=== PATIENT | female | born 1945 | race Two or more races ===

== ENCOUNTER → 2024-07-17 | Outpatient (CLI) | payer MEDICARE, BC, SELFPAY ==
[2024-07-17 10:05] LABS: Collection Type, Urine Clean Catch
[2024-07-17 10:21] LABS: Basophils % (Auto) 1 % (0-2.5); Eosinophils # (Auto) 0.1 Thou/mm3 (0.0-0.5); Eosinophils % (Auto) 3 % (0-10); Hematocrit 33.7 % (36.0-46.0); Hemoglobin 10.8 g/dL (12.0-16.0); Immature Granulocytes % (Auto) 0 % (0-0); Immature Granulocytes Auto 0.01 Thou/mm3 (0.00-0.00); Lymphocytes # (Auto) 1.9 Thou/mm3 (1.0-4.8); Lymphocytes % (Auto) 39 % (10-50); Mean Corpuscular Hemoglobin 27.8 pg (25.0-35.0); Mean Corpuscular Volume 87 fL (80-100); Monocytes # (Auto) 0.4 Thou/mm3 (0.0-0.8); Monocytes % (Auto) 9 % (0-12); Neutrophils # (Auto) 2.3 Thou/mm3 (1.8-7.7); Neutrophils % (Auto) 48 % (37-80); Nucleated Red Blood Cell % 0 /100 WBC (0); Platelet Count 150 Thou/mm3 (140-440); RDW Standard Deviation 46.8 fL (36.4-46.3); Red Blood Count 3.88 Miln/mm3 (4.00-5.20); White Blood Count 4.8 Thou/mm3 (3.6-11.0)
[2024-07-17 10:41] LABS: Bacteria,Urine 3+; Bilirubin,Urine Negative (Negative); Blood,Urine 1+ (Negative); Clarity,Urine Clear (Clear/Hazy); Color,Urine Lt-Yellow (Lt Yel-Yel); Glucose, Urine Negative (Negative); Hyaline Casts,Urine < 1 /hpf (0-1); Ketones,Urine Negative (Negative); Leukocyte Esterase,Urine Positive (Negative); Nitrite,Urine Positive (Negative); PH,Urine 5.5 (5.0-7.0); Protein,Urine Trace (Neg - Trace); RBC,Urine 5 /hpf (0-3); Squamous Epithelial Cell,Urine 1 /hpf (0-5); Urobilinogen,Urine Negative mg/dL (0.0-1.0); WBC,Urine 66 /hpf (0-5)
[2024-07-17 10:42] LABS: Alanine Aminotransferase 21 U/L (10-49); Albumin, Serum 4.1 gm/dL (3.4-4.8); Albumin/Globulin Ratio 1.5 (1.2-2.2); Alkaline Phosphatase 68 U/L (46-116); Anion Gap 9 (7-16); Aspartate Amino Transferase 24 U/L (0-34); BUN/Creatinine Ratio 24 Ratio (12-20); Bilirubin,Total 0.4 mg/dL (0.3-1.2); Blood Urea Nitrogen 29 mg/dL (9-23); Calcium 9.7 mg/dL (8.3-10.6); Calcium (Corrected) 9.7 mg/dL (8.5-10.1); Carbon Dioxide 23.2 mMol/L (20.0-31.0); Cardiac Risk Estimate 2.3 RATIO (3.7-5.6); Chloride 110 mMol/L (98-107); Cholesterol 134 mg/dL (132-200); Creatinine (Component) 1.2 mg/dL (0.6-1.3); Globulin 2.8 gm/dL (2.3-3.5); Glucose 115 mg/dL (74-106); HDL Cholesterol 59 mg/dL (40-60); LDL Cholesterol,Calculated 41 mg/dL (0-130); Osmolality,Calculated 289 (275-295); Potassium 3.8 mMol/L (3.4-5.1); Sodium 142 mMol/L (136-145); Total Protein 6.9 gm/dL (5.7-8.2); Triglycerides 169 mg/dL (30-150); eGFR 46 See Note
== END | disposition home or self-care (01) ==
LOC: COPL 09:20
PROVIDERS: PCP Internal Medicine; Referring Provider Internal Medicine; Visit Provider Internal Medicine
DX: E03.9 Hypothyroidism, unspecified (principal); C90.00 Multiple myeloma not having achieved remission; E78.5 Hyperlipidemia, unspecified; I10 Essential (primary) hypertension
CPT/HCPCS: 36415; 80053; 80061; 81001; 84443; 85025

== ENCOUNTER → 2024-07-28 | Outpatient (CLI) | payer MEDICARE, BC, SELFPAY ==
--- NOTE | 2024-07-28 10:55 | XR_ITS ---
Examination: CT abdomen without intravenous contrast. Coronal 2-D reconstructions. Sagittal 2-D reconstructions. Date and time of exam:July 28, 2024 1115 hours Comparison January 01, 2023 CTDI: vol (mGy): 8.31 DLP: (mGycm): 230 Technique: Axial images of the abdomen have been obtained, 3 mm slice thickness, without intravenous contrast 2-D sagittal coronal reconstructions Low dose protocols were performed. One or more of the following dose reduction techniques were used; automated exposure control, adjustment of the mA and/or KV according to patient size, use of iterative reconstruction technique. Findings: No focal liver lesions Absent gallbladder Spleen is not enlarged No pancreatic or adrenal mass Moderate bilateral renal parenchymal scar formation 3 mm soft calcification posterior right kidney No hydronephrosis or ureteral calculi No bowel obstruction Scattered colonic diverticulosis Moderate osteopenia IMPRESSION: Absent gallbladder Moderate bilateral renal parenchymal scar formation 3 mm calculus posterior right kidney, no hydronephrosis or ureteral calculi
== END | disposition home or self-care (01) ==
LOC: CCTX 10:44
PROVIDERS: PCP Internal Medicine; Referring Provider Internal Medicine; Visit Provider Internal Medicine
DX: N28.89 Other specified disorders of kidney and ureter (principal); N20.0 Calculus of kidney; Z90.49 Acquired absence of other specified parts of digestive tract
CPT/HCPCS: 74150

== ENCOUNTER 2024-10-25 10:15 | Day surgery (SDC) | payer MEDICARE, BC, SELFPAY ==
[2024-10-25] VITALS (10 sets, daily range): BP systolic 126–182; BP diastolic 62–87; PULSE 54–77; RESP 15–22; TEMP 36.5–36.9; O2SAT 95–100; BMI 29.6
[2024-10-25] MEDS: SODIUM CHLORIDE 0.9% 500 ML 500 ML 20 ML IV (11:50)
[2024-10-25] MEDS: BENZOCAINE 20% (Hurricaine) SPRAY 1 DOSE TOP (11:51)
[2024-10-25] MEDS: DiphenhydrAMINE INJ 50 MG/ML VIAL 25 MG IVP (11:56)
[2024-10-25] MEDS: fentaNYL CIT INJ 50 mCg/ML AMP 2ML (ASD USE ONLY) IVP (11:56)
[2024-10-25] MEDS: MIDAZOLAM INJ 1 MG/ML VIAL 2 ML (ASD USE ONLY) 2 MG IVP (11:58)
== END 2024-10-25 13:00 | disposition home or self-care (01) ==
PROVIDERS: PCP Internal Medicine; Referring Provider Specialist; Visit Provider Specialist
PROC: (CPT 43239; principal; 2024-10-25 12:00)
DX: K22.2 Esophageal obstruction (principal); K20.90 Esophagitis, unspecified without bleeding; K29.70 Gastritis, unspecified, without bleeding; K31.89 Other diseases of stomach and duodenum; K29.80 Duodenitis without bleeding
CPT/HCPCS: 43248; 43239; C1769; J1200; J2250; J3010; J7040; A9270

== ENCOUNTER → 2024-12-06 | Outpatient (CLI) | payer MEDICARE, BC, SELFPAY ==
[2024-12-06 09:14] LABS: Collection Type, Urine Clean Catch
[2024-12-06 09:30] LABS: Basophils # (Auto) 0.0 Thou/mm3 (0.0-0.2); Basophils % (Auto) 1 % (0-2.5); Eosinophils # (Auto) 0.1 Thou/mm3 (0.0-0.5); Eosinophils % (Auto) 2 % (0-10); Hematocrit 32.8 % (36.0-46.0); Hemoglobin 10.4 g/dL (12.0-16.0); Immature Granulocytes Auto 0.02 Thou/mm3 (0.00-0.00); Lymphocytes # (Auto) 1.7 Thou/mm3 (1.0-4.8); Lymphocytes % (Auto) 30 % (10-50); Mean Corpuscular HGB Conc 31.7 g/dl (31.0-37.0); Mean Corpuscular Hemoglobin 27.9 pg (25.0-35.0); Mean Corpuscular Volume 88 fL (80-100); Monocytes # (Auto) 0.4 Thou/mm3 (0.0-0.8); Monocytes % (Auto) 7 % (0-12); Neutrophils # (Auto) 3.4 Thou/mm3 (1.8-7.7); Neutrophils % (Auto) 61 % (37-80); Nucleated Red Blood Cell # 0.00 Thou/mm3 (0.00-0.00); Nucleated Red Blood Cell % 0 /100 WBC (0); Platelet Count 214 Thou/mm3 (140-440); RDW Standard Deviation 50.1 fL (36.4-46.3); Red Blood Count 3.73 Miln/mm3 (4.00-5.20); White Blood Count 5.6 Thou/mm3 (3.6-11.0)
[2024-12-06 09:46] LABS: Alanine Aminotransferase 19 U/L (10-49); Albumin, Serum 3.9 gm/dL (3.4-4.8); Albumin/Globulin Ratio 1.6 (1.2-2.2); Alkaline Phosphatase 67 U/L (46-116); Anion Gap 7 (7-16); Aspartate Amino Transferase 22 U/L (0-34); BUN/Creatinine Ratio 13 Ratio (12-20); Bilirubin,Total 0.3 mg/dL (0.3-1.2); Blood Urea Nitrogen 15 mg/dL (9-23); Calcium 9.0 mg/dL (8.3-10.6); Calcium (Corrected) 9.1 mg/dL (8.5-10.1); Carbon Dioxide 26.4 mMol/L (20.0-31.0); Cardiac Risk Estimate 2.5 RATIO (3.7-5.6); Chloride 107 mMol/L (98-107); Cholesterol 107 mg/dL (132-200); Creatinine (Component) 1.2 mg/dL (0.6-1.3); Globulin 2.5 gm/dL (2.3-3.5); Glucose 121 mg/dL (74-106); HDL Cholesterol 42 mg/dL (40-60); LDL Cholesterol,Calculated 40 mg/dL (0-130); Osmolality,Calculated 281 (275-295); Potassium 3.9 mMol/L (3.4-5.1); Sodium 140 mMol/L (136-145); Total Protein 6.4 gm/dL (5.7-8.2); Triglycerides 127 mg/dL (30-150); eGFR 45 See Note
[2024-12-06 09:50] LABS: Bilirubin,Urine Negative (Negative); Blood,Urine 1+ (Negative); Clarity,Urine Clear (Clear/Hazy); Color,Urine Yellow (Lt Yel-Yel); Glucose, Urine Negative (Negative); Ketones,Urine Negative (Negative); Leukocyte Esterase,Urine Negative (Negative); Nitrite,Urine Negative (Negative); PH,Urine 6.0 (5.0-7.0); Protein,Urine Trace (Neg - Trace); RBC,Urine 4 /hpf (0-3); Specific Gravity,Urine 1.023 (1.001-1.035); Squamous Epithelial Cell,Urine 6 /hpf (0-5); Urobilinogen,Urine Negative mg/dL (0.0-1.0); WBC,Urine 2 /hpf (0-5)
== END | disposition home or self-care (01) ==
LOC: COPL 08:20
PROVIDERS: PCP Internal Medicine; Referring Provider Internal Medicine; Visit Provider Internal Medicine
DX: I10 Essential (primary) hypertension (principal); E78.5 Hyperlipidemia, unspecified
CPT/HCPCS: 36415; 80053; 80061; 81001; 85025

== ENCOUNTER 2024-12-14 09:02 | Inpatient (IN) | payer MEDICARE, BC, SELFPAY ==
[2024-12-14] VITALS (7 sets, daily range): BP systolic 132–174; BP diastolic 61–81; PULSE 55–67; RESP 16–22; TEMP 36.4–37; O2SAT 95–98; BMI 29.2; BMI 46.5
--- NOTE | 2024-12-14 09:17 | EDRME_ITS ---
Rapid Medical Screening Exam RME Arrival date/time: 12/14/24 09:02 CC: Right lower quadrant abdominal pain HPI ongoing for 2 weeks progressive increase in severity persistent in nature currently a 10 on a 10 nausea without any vomiting denies diarrhea. Was seen on the December 01 at hospital in [place] was diagnosed with pancreatitis and duodenitis and discharged home. Currently sent over from Dr. Ledbetter's office for further workup. Chief Complaint: Abdominal Pain Time Seen by Provider: 12/14/24 09:16
--- NOTE | 2024-12-14 09:18 | EKG_ITS ---
[facility] Test Date: 2024-12-14 Pat Name: BUSHRA LUNA Department: Room: - Gender: Female Torch Cutter: : 1945 Requested By: Isael Tran Order Number: [id number] Reading MD: Isael Tran Measurements Intervals Plaza Rate: 61 P: 21 ND: 143 QRS: -72 QRSD: 146 T: 27 QT: 448 QTc: 452 Interpretive Statements SINUS RHYTHM POSSIBLE LEFT ATRIAL ENLARGEMENT [-0.1mV P-WAVE IN V1/V2] LEFT AXIS DEVIATION [QRS AXIS < -30] RIGHT BUNDLE BRANCH BLOCK [120+ ms QRS DURATION, UPRIGHT V1, 40+ ms S IN I/aVL/V4/V5/V6] Compared to ECG 07/26/2023 12:35:20 Left-axis deviation now present Sinus bradycardia no longer present Left anterior fascicular block no longer present /store/S0/[id number]/ecg/[id number].pdf
--- NOTE | 2024-12-14 09:19 | XR_ITS ---
Examination: CT abdomen and pelvis without contrast. Coronal 3-D reconstructions. Sagittal 2-D reconstructions. Date and time of exam:December 14, 2024 0939 hours Comparison July 28, 2024 INDICATIONS: Onset right lower abdominal pain today CTDI: vol (mGy): 7.44 DLP: (mGycm): 118 Technique: Axial images of the abdomen have been obtained, 3 mm slice thickness Intravenous contrast material has not been administered. Low dose protocols were performed. One or more of the following dose reduction techniques were used; automated exposure control, adjustment of the mA and/or KV according to patient size, use of iterative reconstruction technique. Findings: No focal liver or splenic lesions Absent gallbladder Suspicious for minimal edema involving the pancreatic head Aorta normal size Moderate renal parenchymal scar formation in renal cortical thinning, no hydronephrosis Aorta normal size No pericecal inflammatory change Colonic diverticulosis, no diverticulitis Urinary bladder intact Absent uterus No pelvic mass Prominent osteopenia IMPRESSION: Suspicious for pancreatitis, clinical correlation advised, consider MRCP follow-up No pericecal inflammatory change Colonic diverticulosis, no diverticulitis
[2024-12-14 10:01] LABS: Collection Type, Urine Clean Catch
--- NOTE | 2024-12-14 10:01 | EDNOTE_ITS ---
<Statement entered by Noni Leyva MD - 12/14/24 15:00> I, Noni Leyva MD, have reviewed the history, exam, and assessment of the patient. I have evaluated the patient independently and agree with the plan of care documented by [ ]. All diagnostic studies were reviewed and discussed. I confirm the diagnosis as documented by the Resident. I was present during the Medical Decision Making for this patient. The patient's plan of care was created between myself and the Resident and consistent with our discussion of the patient's case. ED General RME/HPI General Chief complaint: Abdominal Pain Stated complaint: Acute Pancreatitis Time Seen by Provider: 12/14/24 09:16 Arrival date/time: 12/14/24 09:02 RME / HPI RME / HPI narrative: 12/14/24 09:02 CC: Right lower quadrant abdominal pain HPI ongoing for 2 weeks progressive increase in severity persistent in nature currently a 10 on a 10 nausea without any vomiting denies diarrhea. Was seen on the December 01 at hospital in [place] was diagnosed with pancreatitis and duodenitis and discharged home. Currently sent over from Dr. Ledbetter's office for further workup. 79-year-old female with past medical history of breast cancer, bone cancer, blood cancer s/p resections in September of last year, CAD s/p CABG, hypertension, and hyperlipidemia, came into the ED due to worsening abdominal pain that started around 2 weeks ago and is associated with nausea, but no vomiting. Patient states that she went to [facility] and she was diagnosed pancreatitis and duodenitis, but she was not admitted at this time she was sent home. Patient states that since discharge her pain has increasingly gotten worse and she has became nauseous, but has not had any vomiting. That her pain is epigastric mostly and that it radiates to her back. She also mentioned that she did feel like she had a fever at night and she has also been having intra labs days of diarrhea with normal bowel movements. She has not noticed any blood in the bowels. Otherwise denies any chest pain, shortness of breath, dizziness, palpitation, or burning sensation of urination. Related Data Home Medications ?Medication ?Instructions ?Recorded ?Confirmed alprazolam 0.5 mg tablet 0.5 mg PO TID 10/25/2410/25 Held on 10/25/24. Instructions: Resume on 10/26/24. amlodipine 5 mg tablet 5 mg PO DAILY 10/25/2410/25 diphenoxylate-atropine 2.5 1 tab PO DAILY 10/25/24 mg-0.025 mg tablet levothyroxine 125 mcg tablet 125 mcg PO DAILY 10/25/24 10/25/24 lisinopril 30 mg tablet 30 mg PO DAILY 10/25/2410/08 loperamide 2 mg capsule 2 mg PO DAILY 10/25/2410/25 loratadine 10 mg capsule (Allergy 10 mg PO Q24H 10/25/24 Relief (loratadine)) naproxen 500 mg tablet 500 mg PO BID PRN pain 10/2510/25/24 nitroglycerin 0.4 mg sublingual 0.4 mg buccal [id number] PRN chest 10/25/24 10/25/24 tablet pain olmesartan 40 mg tablet 40 mg PO QDAY 10/25/2410/25 pantoprazole 40 mg tablet,delayed 40 mg PO DAILY 10/2510/25/24 release rosuvastatin 20 mg tablet 20 mg PO DAILY 10/25/2410/08 Allergies Allergy/AdvReac Type Severity Reaction Status Date / Time Iodinated Contrast Media Allergy Verified 12/14/24 09:09 Sulfa (Sulfonamide Allergy Verified 12/14/24 09:09 Antibiotics) Review of Systems Review of Systems Systems Reviewed: All systems reviewed, normal except as documented Past Medical History Past Medical History Comments PMH COMMENT: PMH:breast cancer, bone cancer, blood cancer s/p resections in September of last year, CAD s/p CABG, hypertension, and hyperlipidemia Social Hx: Denies any smoking, drugs, alcohol Allergies: Sulfa and iodinated contrast ED Exam Narrative Physical exam: Gen: A&O X 3, uncomfortable appearing, mild distress due to pain HEENT: NCAT, EOMI, Pupils reactive JOSEF, not icteric. External ears normal. No rhinorrhea. Moist mucous membranes. Neck: Supple, full range of motion, no observable masses, No meningeal sign. Lungs: No Respiratory distress, clear bilateral. CV: RRR, no murmurs. Abdomen: Soft, generalized tenderness, but worse in epigastric region with palpation, No rebound tenderness. MSK: No joint swelling, no redness, peripheral pulses presents, lumbar with no edema. Skin: No rashes, petechiae, lesions. Neuro: No focal neurological deficits appreciated, sensory and motor intact. Psych: Cooperative, appropriate mood and effect. Course Quality Measures none Orders Category Date Time Status COVID-19 Screening Questionnaire NOW Care 12/14/24 11:24 Active Decision to Admit X1 Care 12/14/24 11:23 Active EKG (ED ONLY) *Do not use* NOW Care 12/14/24 09:18 Completed Saline [Insert IV] NOW Care 12/14/24 09:[address] abdomen pelvis wo con Stat Exams 12/14/24 09:19 Completed EKG (ED Only) Stat Exams 12/14/24 09:18 Draft B-Type Natriuretic Peptide Stat Lab 12/14/24 09:57 Completed CBC Stat Lab 12/14/24 09:57 Completed Comprehensive Metabolic Panel Stat Lab 12/14/24 09:57 Results Drug Screen,Urine Stat Lab 12/14/24 09:52 Completed Lactate (Lactic Acid) Stat Lab 12/14/24 09:57 Completed Lipase Stat Lab 12/14/24 09:57 Results Lipid Panel Stat Lab 12/14/24 09:57 Results Magnesium Stat Lab 12/14/24 09:57 Results Partial Thromboplastin Time Stat Lab 12/14/24 09:57 Completed Prothrombin Time with INR Stat Lab 12/14/24 09:57 Completed Urinalysis Stat Lab 12/14/24 08:20 Received Magnesium Sulfate 2 GM Ivpb [Magnesium Sulfate Ivpb] Med 12/14/24 10:36 Active 2 gm in 50 ml IV X1 Morphine Inj Med 12/14/24 09:18 Discontinued 4 mg IVP X1 ONE Ondansetron Inj [Zofran Inj] Med 12/14/24 09:18 Discontinued 4 mg IVP X1 ONE Sodium Chloride 0.9% 500 ml [Ns] 500 ml Med 12/14/24 09:18 Discontinued IV 999 mls/hr Vital Signs Vital signs: Vital Signs Temperature 98.3 F 12/14/24 09:15 Pulse Rate 63 12/14/24 09:15 Respiratory Rate 22 H 12/14/24 09:15 Blood Pressure 156/79 H 12/14/24 09:15 Pulse Oximetry (%) 96 12/14/24 09:15 Oxygen Delivery Method Room Air 12/14/24 09:15 Discharge Plan Plan Patient Disposition: Admit Acute Care w/in Hospital Prescriptions/Referrals Prescriptions/Med Rec: No Action Allergy Relief (loratadine) 10 mg capsule 10 mg PO Q24H rosuvastatin 20 mg tablet 20 mg PO DAILY Patient Comments: TAKE 1 TABLET BY MOUTH EVERY DAY pantoprazole 40 mg tablet,delayed release (DR/EC) 40 mg PO DAILY Patient Comments: TAKE 1 TABLET BY MOUTH EVERY DAY olmesartan 40 mg tablet 40 mg PO QDAY naproxen 500 mg tablet 500 mg PO BID PRN (Reason: pain) Patient Comments: TAKE 1 TABLET BY MOUTH TWICE DAILY NEEDED FOR MILD PAIN. GENERIC FOR NAPROSYN lisinopril 30 mg tablet 30 mg PO DAILY Patient Comments: TAKE 1 TABLET BY MOUTH EVERY DAY levothyroxine 125 mcg tablet 125 mcg PO DAILY Patient Comments: TAKE 1 TABLET BY MOUTH DAILY nitroglycerin 0.4 mg tablet, sublingual 0.4 mg BUCCAL [id number] PRN (Reason: chest pain) Patient Comments: DISSOLVE 1 TABLET UNDER THE TONGUE AT THE ONSET OF CHEST PAIN. REPEAT EVERY 5 MINUTES. MAXIMUM OF 3 DOSES WITHIN 15 MINUTES amlodipine 5 mg tablet 5 mg PO DAILY Patient Comments: TAKE 1 TABLET BY MOUTH EVERY DAY alprazolam 0.5 mg tablet 0.5 mg PO TID Patient Comments: TAKE 1 TABLET BY MOUTH THREE TIMES DAILY NEEDED FOR ANXIETY loperamide 2 mg capsule 2 mg PO DAILY Patient Comments: TAKE 1 CAPSULE BY MOUTH EVERY 4 HOURS NEEDED FOR LOOSE STOOLS diphenoxylate-atropine 2.5-0.025 mg tablet 1 tab PO DAILY Patient Comments: TAKE 1 TABLET BY MOUTH FOUR TIMES DAILY NEEDED FOR LOOSE STOOLS Referrals: Reza Ledbetter MD [Primary Care Provider] - In 1 week Problem List Clinical Impression: Pancreatitis Patient/Caregiver Discharge Instructions Print Language: Jamaican Stand Alone Forms: [employer] Award Info., Patient Portal Info Letter MDM Narrative MDM hospital course: Patient was seen and examined by myself upon arrival to room. Diagnostic labs and imaging was ordered. 11:10:Labs were reviewed and showed lipase elevation at 55, abdomen/pelvis CT that shows suspicion for pancreatitis. 11:23: Spoke with Dr. Ledbetter for hospital admission. Will assess patient for admission . Case disclosed with Attending Dr. Gordon Olvera PGY2 Disclaimer: Even though this this note was dictated by speech recognition and even though it was carefully revised there may still be minor errors in ladies locker room attendant due to voice recognition software. Medication Administration(s) Medication Administration History Magnesium Sulfate (Magnesium Sulfate Ivpb) 2 gm in 50 mls @ 25 mls/hr IV X1 ONE Stop: 12/14/24 12:35 Last Admin: 12/14/24 11:12 Dose: 25 mls/hr Documented By: DB Discontinued Medications Sodium Chloride (Ns) 500 mls @ 999 mls/hr IV .Q31M ONE Stop: 12/14/24 09:48 Last Infusion: 12/14/24 11:12 Dose: Infused Documented By: Admin: 12/14/24 10:37 Dose: 999 mls/hr Documented By: DO Morphine Sulfate (Morphine Sulf Inj 10 Mg/Ml Vial) 4 mg IVP X1 ONE Stop: 12/14/24 09:19 Last Admin: 12/14/24 10:39 Dose: 4 mg Documented By: DO Ondansetron HCl (Ondansetron Inj 2 Mg/Ml Inj 2 Ml) 4 mg IVP X1 ONE; Protocol Stop: 12/14/24 09:19 Last Admin: 12/14/24 10:39 Dose: 4 mg Documented By: DO
[2024-12-14 10:09] LABS: Basophils # (Auto) 0.0 Thou/mm3 (0.0-0.2); Basophils % (Auto) 0 % (0-2.5); Eosinophils # (Auto) 0.1 Thou/mm3 (0.0-0.5); Eosinophils % (Auto) 1 % (0-10); Hematocrit 35.5 % (36.0-46.0); Hemoglobin 11.4 g/dL (12.0-16.0); Immature Granulocytes Auto 0.02 Thou/mm3 (0.00-0.00); Lymphocytes # (Auto) 2.0 Thou/mm3 (1.0-4.8); Lymphocytes % (Auto) 26 % (10-50); Mean Corpuscular HGB Conc 32.1 g/dl (31.0-37.0); Mean Corpuscular Hemoglobin 27.7 pg (25.0-35.0); Mean Corpuscular Volume 86 fL (80-100); Monocytes # (Auto) 0.5 Thou/mm3 (0.0-0.8); Monocytes % (Auto) 6 % (0-12); Neutrophils # (Auto) 5.3 Thou/mm3 (1.8-7.7); Neutrophils % (Auto) 66 % (37-80); Nucleated Red Blood Cell # 0.00 Thou/mm3 (0.00-0.00); Nucleated Red Blood Cell % 0 /100 WBC (0); Platelet Count 242 Thou/mm3 (140-440); RDW Standard Deviation 48.4 fL (36.4-46.3); Red Blood Count 4.11 Miln/mm3 (4.00-5.20); White Blood Count 8.0 Thou/mm3 (3.6-11.0)
[2024-12-14 10:10] LABS: Lactate (Lactic Acid) 1.6 mMol/L (0.4-2.0)
[2024-12-14 10:12] LABS: Amphetamine/Methamp Scrn,U Negative (Negative); Barbiturate Screen,Urine Negative (Negative); Benzodiazepines Screen,Urine Negative (Negative); Benzoylecgonine Screen, Ur Negative (Negative); Fentanyl Screen,Urine Negative (Negative); Opiate Screen,Urine Positive (Negative); THC Screen,Urine Negative (Negative)
[2024-12-14 10:28] LABS: INR 1.0 (0.9-1.3); Partial Thromboplastin Time 26.2 Seconds (22.0-36.0); Prothrombin Time 11.4 Seconds (9.0-12.2)
[2024-12-14 10:34] LABS: Alanine Aminotransferase 16 U/L (10-49); Albumin, Serum 4.3 gm/dL (3.4-4.8); Albumin/Globulin Ratio 1.5 (1.2-2.2); Alkaline Phosphatase 68 U/L (46-116); Anion Gap 12 (7-16); Aspartate Amino Transferase 23 U/L (0-34); BUN/Creatinine Ratio 12 Ratio (12-20); Bilirubin,Total 0.3 mg/dL (0.3-1.2); Blood Urea Nitrogen 12 mg/dL (9-23); Calcium 9.4 mg/dL (8.3-10.6); Calcium (Corrected) 9.4 mg/dL (8.5-10.1); Carbon Dioxide 22.5 mMol/L (20.0-31.0); Chloride 104 mMol/L (98-107); Creatinine (Component) 1.0 mg/dL (0.6-1.3); Estimated Creatinine Clearance 37.9 mL/min (>60); Globulin 2.8 gm/dL (2.3-3.5); Glucose 134 mg/dL (74-106); Lipase 54 U/L (12-53); Magnesium 1.5 mg/dL (1.6-2.6); Osmolality,Calculated 277 (275-295); Potassium 4.0 mMol/L (3.4-5.1); Sodium 138 mMol/L (136-145); Total Protein 7.1 gm/dL (5.7-8.2); eGFR 57 See Note
[2024-12-14 10:35] LABS: B-Type Natriuretic Peptide 88 pg/mL (0-100)
[2024-12-14] MEDS: SODIUM CHLORIDE 0.9% 500 ML 500 ML 999 ML IV ×2 (10:37→12:00)
[2024-12-14] MEDS: ONDANSETRON INJ 2 MG/ML INJ 2 ML 4 MG IVP (10:39)
[2024-12-14] MEDS: MORPHINE SULF INJ 10 MG/ML VIAL 4 MG IVP (10:39)
[2024-12-14] MEDS: Magnesium Sulfate 2 GM Ivpb 2 GM/50 ML BAG IV ×2 (11:12→14:00)
[2024-12-14 11:44] LABS: Cardiac Risk Estimate 2.3 RATIO (3.7-5.6); Cholesterol 103 mg/dL (132-200); HDL Cholesterol 45 mg/dL (40-60); LDL Cholesterol,Calculated 32 mg/dL (0-130); Triglycerides 129 mg/dL (30-150)
[2024-12-14] MEDS: HYDROmorphone INJ 2 MG/ML VIAL 0.5 MG IVP (11:53)
[2024-12-14] MEDS: ONDANSETRON INJ 2 MG/ML INJ 2 ML IVP (11:53)
--- NOTE | 2024-12-14 13:34 | PD.RESHP ---
Documentation for date of: 12/14/24 HPI History of Present Illness Chief complaint: Epigastric abdominal Pain History of present illness: Ms Gray is a 79 year old woman with hx of HTN CVD s/p CABG 2009. , myeloma (diagnosed in 2019, on revlimid), breast cancer s/p R mastectomy (in remission), dysphagia (previously seen by sandra for esopageal dilation 09/2024), BLE neuropathy and kidney stone who reports that she has been experiencing about 1 month of mild-moderate epigastric pain that radiated to her back, associated with nausea and vomiting. the pain has progressively worsened, which prompted her to present to the ED in [place]. Per the patient and her daughter Emma, she was diagnosed with pancreatitis, and discharged with NORCO however her symptoms persisted and worsened. patient states that she has only been able to tolerate liquids only such as broths that are diluted. She states that her abdomen feels distended and that she often has intermittent diarrhea, ROS: She endorses fever, chills, nausea, vomiting, constipation, diarrhea, dry cough, anorexia She denies shortness of breath, chest pain Surgical hx R mastectomy Social Hx: she lives at home, unable to ambulate, navigates with wheelchair denies etoh, drugs, smoking Allergies: Sulfa and iodinated contrast ED Course Dx CBC wnl, lactate wnl, CRP wnl, lipase elevated 54, EKG, nl sinus rhythm CTAP wo contrast : Suspicious for pancreatitis, Colonic diverticulosis, no diverticulitis Tx 1000cc NS bolus zofran 4 mg IVP x1, 2mg IVP x1 Magnesium sulfate 2gm IV Morpheine 4 mg IVP x1 Dilaudid 0.5 mg IVP x1 12/14/2024: patient seen and examined at bedside in the ED with daughter Emma, mild epigastric tenderness to palpation and R abdominal pain no rebound or guarding. pt reports 3x small volume emesis while in the ED. plan to admit to inpatient, NPO and supportive measures for mild pancreatitis. Review of Systems Review of Systems Narrative Review of Systems: CONSTITUTIONAL: Patient denies any fever, chills. Complaining of fatigue HEENT: Denies any visual disturbances or hearing problems. CARDIOVASCULAR: Patient denies any chest pain. c/o shortness of breath, swelling in the lower extremities. PULMONARY: Patient c/o shortness of breath GASTROINTESTINAL: Patient complaining of abdominal pain GENITOURINARY: Patient denies any urinary symptoms of burning or frequency or hematuria, denies any form in the urine. SKIN: Denies any rash. MUSCULOSKELETAL: Gait imbalance NEUROLOGICAL: Denies any neurological problems of strokes, seizures or confusion. Denies any memory problems. PSYCHIATRIC: Denies any depression or anxiety. LYMPHATICS : No lymphadenopathy Exam Vital Signs Temp Pulse Resp BP Pulse Ox O2 Del Method 97.8 F 67 18 147/61 H 98 Room Air 12/14/24 12:14 12/14/24 12:14 12/14/24 12:14 12/14/24 12:14 12/14/24 12:14 12/14/24 12:14 Narrative Exam GENERAL APPEARANCE: Patient seems to be comfortable, adequately hydrated and nourished. Currently seen in the emergency department HEENT: EOMI, PERRLA NECK: Neck supple, no JVD or bruit CARDIOVASCULAR: Heart regular, no murmurs LUNGS/CHEST: Fine crackles ABDOMEN: Soft, discomfort noted in the abdomen. Mild distention noted. No masses. Normal bowel sounds. EXTREMITIES: 1+ edema in the lower extremities SKIN: Stasis dermatitis noted in the legs MUSCULOSKELETAL: In bed NEUROLOGICAL : able to move her extremities Results: Labs 12/14/24 09:57 12/14/24 09:57 Labs: Short CBC 12/14/24 Range/Units 09:57 WBC 8.0 (3.6-11.0) Thou/mm3 Hgb 11.4 L (12.0-16.0) g/dL Hct 35.5 L (36.0-46.0) % Plt Count 242 (140-440) Thou/mm3 BMP 12/14/24 09:57 Sodium 138 Potassium 4.0 Chloride 104 Carbon Dioxide 22.5 BUN 12 Creatinine 1.0 Glucose 134 H Calcium 9.4 Liver Function 12/14/24 Range/Units 09:57 Total Bilirubin 0.3 (0.3-1.2) mg/dL AST 23 (0-34) U/L ALT 16 (10-49) U/L Alkaline Phosphatase 68 (46-116) U/L Albumin 4.3 (3.4-4.8) gm/dL Quality Measures Quality Measures VTE prophylaxis Advance care planning discussed with:: patient and child Medications Home Medications and Allergies Home Medications ?Medication ?Instructions ?Recorded ?Confirmed ?Type alprazolam 0.5 mg tablet 0.5 mg PO TID 10/25/24 12/14/24 History amlodipine 5 mg tablet 5 mg PO DAILY 10/25/24 12/14/24 History diphenoxylate-atropine 2.5 1 tab PO DAILY PRN diarrhea 10/25/24 12/14/24 History mg-0.025 mg tablet levothyroxine 125 mcg tablet 125 mcg PO DAILY 10/25/24 12/14/24 History lisinopril 30 mg tablet 30 mg PO DAILY 10/25/24 12/14/24 History naproxen 500 mg tablet 500 mg PO BID PRN pain 10/25/24 12/14/24 History pantoprazole 40 mg tablet,delayed 40 mg PO DAILY 10/25/24 12/14/24 History release rosuvastatin 20 mg tablet 20 mg PO DAILY 10/25/24 12/14/24 History aspirin 81 mg capsule 81 mg PO QDAY 12/14/24 12/14/24 History potassium chloride 10 mEq 10 meq PO QDAY 12/14/24 12/14/24 History tablet,extended release valacyclovir 500 mg tablet 500 mg PO QDAY 12/14/24 12/14/24 History (Valtrex) Allergies Allergy/AdvReac Type Severity Reaction Status Date / Time Iodinated Contrast Media Allergy Verified 12/14/24 09:09 Sulfa (Sulfonamide Allergy Verified 12/14/24 09:09 Antibiotics) Visit Medications Hydromorphone HCl (Hydromorphone Inj 2 Mg/Ml Vial) 0.75 mg IVP Q6HR PRN PRN Reason: pain Stop: 12/19/24 13:31 Lactated Ringer's (Lactated Ringers) 1,000 mls @ 85 mls/hr IV .[id number] NICK Stop: 12/15/24 12:54 Magnesium Sulfate (Magnesium Sulfate Ivpb) 2 gm in 50 mls @ 25 mls/hr IV X1 ONE Stop: 12/14/24 15:25 Acetaminophen (Ofirmev Inj) 1,000 mg in 100 mls @ 250 mls/hr IV Q6H NICK Stop: 12/15/24 07:53 Discontinued Medications Hydromorphone HCl (Hydromorphone Inj 2 Mg/Ml Vial) 0.5 mg IVP X1 ONE Stop: 12/14/24 11:41 Last Admin: 12/14/24 11:53 Dose: 0.5 mg Sodium Chloride (Ns) 500 mls @ 999 mls/hr IV .Q31M ONE Stop: 12/14/24 09:48 Last Infusion: 12/14/24 11:12 Dose: Infused Magnesium Sulfate (Magnesium Sulfate Ivpb) 2 gm in 50 mls @ 25 mls/hr IV X1 ONE Stop: 12/14/24 12:35 Last Infusion: 12/14/24 13:12 Dose: Infused Sodium Chloride (Ns) 500 mls @ 999 mls/hr IV .Q31M ONE Stop: 12/14/24 12:10 Last Infusion: 12/14/24 12:23 Dose: Infused Morphine Sulfate (Morphine Sulf Inj 10 Mg/Ml Vial) 4 mg IVP X1 ONE Stop: 12/14/24 09:19 Last Admin: 12/14/24 10:39 Dose: 4 mg Ondansetron HCl (Ondansetron Inj 2 Mg/Ml Inj 2 Ml) 4 mg IVP X1 ONE; Protocol Stop: 12/14/24 09:19 Last Admin: 12/14/24 10:39 Dose: 4 mg Ondansetron HCl (Ondansetron Inj 2 Mg/Ml Inj 2 Ml) 2 mg IVP X1 ONE; Protocol Stop: 12/14/24 11:42 Last Admin: 12/14/24 11:53 Dose: 2 mg Assessment & Plan Plan Ms Gray is a 79 year old woman with hx of HTN CVD s/p CABG 2009. , myeloma (diagnosed in 2019, on revlimid), breast cancer s/p R mastectomy (in remission), dysphagia (previously seen by sandra for esopageal dilation 09/2024), BLE neuropathy and kidney stone who reports that she has been experiencing about 1 month of mild-moderate epigastric pain that radiated to her back, associated with nausea and vomiting. the pain has progressively worsened, which prompted her to present to the ED in [place]. #Mild Pancreatitis pt reports 1 month of epigastric pain that radiates to the back, previously seen by ED in [place] for pancreatitis and was discharged with NORCO for pain, pt pain has progressively worsened and anorexia persists Lipase elevated 54, CRP wnl. Plan - NPO - IV fluids, LR 80ml/hr - Pain: IV APAP q6hr nick, dilaudid 0.5 mg q6hr prn #HTN #CVD s/p CABG in 2009 - lisinopril 30 mg qd - amlodipine mg qd #Multiple myeloma (dx in 2018) continues on revlimid 5 mg q21 days and 7 days off #R breast cancer s/p R mastectomy 2023 -in remission #HLD - rosouvastatin 20 mg QHS #GERD #hx dyspagia s/p dilation with flores in 2024 - protonix 40 #Normocytic anemia #query Anemia of chronic disease given hx of MM Dispo: home pending resolution of pancreatitis symtpoms Diet: NPO, will advance as tolerated Bowel Reg: Senna 1 tab PRN VTE ppx: Heparin sub cutaneous GI ppx: protonix Code status:FULL Plan discussed with nephrology attending Dr. Anatoly Mccall MD Internal Medicine PGY-1 Attending Provider Attestation/Addendum Patient seen and examined with resident physician Dr. Mccall. Note reviewed, agree with findings and recommendations. Patient admitted with pancreatitis-etiology unclear.Liver enzymes normal, lipase tad elevated at 54. Abdominal CT showed mild edema around the pancreatic head. Gallbladder absent. Patient seems to be in significant discomfort out of proportion to her labs. Will request Dr. Flores consult. Continue with Dilaudid for now. IV fluids were given. Magnesium was replaced. Plan of care discussed with daughter at bedside.
[2024-12-14 13:48] LABS: C-Reactive Protein < 0.5 mg/dL (0.0-0.9)
[2024-12-14 13:59] LABS: Bilirubin,Urine Negative (Negative); Blood,Urine Trace (Negative); Clarity,Urine Clear (Clear/Hazy); Color,Urine Yellow (Lt Yel-Yel); Glucose, Urine Negative (Negative); Ketones,Urine Negative (Negative); Specific Gravity,Urine 1.025 (1.001-1.035)
[2024-12-14 14:00] LABS: Bacteria,Urine Rare; Leukocyte Esterase,Urine Negative (Negative); Nitrite,Urine Negative (Negative); PH,Urine 6.0 (5.0-7.0); Protein,Urine 2+ (Neg - Trace); RBC,Urine 2 /hpf (0-3); Squamous Epithelial Cell,Urine 6 /hpf (0-5); Urobilinogen,Urine 0.2 mg/dL (0.0-1.0); WBC,Urine 2 /hpf (0-5)
[2024-12-14] MEDS: RINGERS LACTATED 1000 ML 1,000 ML 85 ML IV (14:00)
[2024-12-14] MEDS: ACETAMINOPHEN IVPB 1,000 MG/100 ML VIAL 250 MG IV ×2 (14:01→19:31)
--- NOTE | 2024-12-14 16:17 | PC.NURSE ---
Spoke with CECY Zhao from ED and received report regarding patient. This nurse is currently waiting for patient to arrive to unit.
--- NOTE | 2024-12-14 16:44 | PC.NURSE ---
pt taken up to floor, staff to bedside to assume care. pt taken up on tele monitor w/o incident, by this rn and document review specialist aimee.
--- NOTE | 2024-12-14 17:50 | PC.NURSE ---
pt family to bring home medication in
[2024-12-14] MEDS: HEPARIN SOD INJ 5000 UNIT/ML VIAL SC (20:48)
--- NOTE | 2024-12-14 22:09 | PD.IMCONS ---
HPI Data of Consult Requesting Physician: Reza Ledbetter MD Primary Care Provider: Reza Ledbetter MD Consult Narrative Reason for consult: pain abdomen, nausea vomiting History of present illness: 79 years old female being evaluated the request of the ER physician for pain abdomen which is quite severe and relentless going to the back with nausea vomiting CT scan of the abdomen pelvis without contrast showed pancreatitis with mild edema colonic diverticulosis absent gallbladder Lipase is elevated 54 upper limit of normal being 53 LFTs are normal Patient is postcholecystectomy Triglycerides are normal Patient on 10/25/2024 underwent upper endoscopy with proximal esophageal dilatation with guidewire savory dilators [place] 54 and [place] 45 along with gastritis and esophagitis biopsies and then negative for Helicobacter pylori or eosinophilic esophagitis Patient is status post CABG 2009 multiple myeloma on Revlimid bilateral lower extremity neuropathy history of kidney stones and right breast carcinoma requiring right mastectomy and the carcinoma is in remission cc:: cc: Reza Ledbetter MD Review of Systems Review of Systems Systems Reviewed: All systems reviewed, normal except as documented Past Medical History Surgical History OTHER SURGICAL HX: As in the history of present illness Meds Home Medications and Allergies Home Medications ?Medication ?Instructions ?Recorded ?Confirmed ?Type alprazolam 0.5 mg tablet 0.5 mg PO TID 10/25/24 12/14/24 History amlodipine 5 mg tablet 5 mg PO DAILY 10/25/24 12/14/24 History diphenoxylate-atropine 2.5 1 tab PO DAILY PRN diarrhea 10/25/24 12/14/24 History mg-0.025 mg tablet levothyroxine 125 mcg tablet 125 mcg PO DAILY 10/25/24 12/14/24 History lisinopril 30 mg tablet 30 mg PO DAILY 10/25/24 12/14/24 History naproxen 500 mg tablet 500 mg PO BID PRN pain 10/25/24 12/14/24 History pantoprazole 40 mg tablet,delayed 40 mg PO DAILY 10/25/24 12/14/24 History release rosuvastatin 20 mg tablet 20 mg PO DAILY 10/25/24 12/14/24 History aspirin 81 mg capsule 81 mg PO QDAY 12/14/24 12/14/24 History potassium chloride 10 mEq 10 meq PO QDAY 12/14/24 12/14/24 History tablet,extended release valacyclovir 500 mg tablet 500 mg PO QDAY 12/14/24 12/14/24 History (Valtrex) Allergies Allergy/AdvReac Type Severity Reaction Status Date / Time Iodinated Contrast Media Allergy Verified 12/14/24 09:09 Sulfa (Sulfonamide Allergy Verified 12/14/24 09:09 Antibiotics) Exam Vital Signs Temp Pulse Resp BP Pulse Ox O2 Del Method 97.6 F 60 21 H 159/81 H 95 Room Air 12/14/24 20:00 12/14/24 20:00 12/14/24 20:00 12/14/24 20:00 12/14/24 20:00 12/14/24 20:00 Constitutional Comments: Alert oriented Routine Respiratory Exam Comments: Normal to auscultation Routine Abdominal Exam Comments: Soft nontender Results Labs 12/15/24 05:09 12/15/24 05:09 Labs: Short CBC 12/14/24 Range/Units 09:57 WBC 8.0 (3.6-11.0) Thou/mm3 Hgb 11.4 L (12.0-16.0) g/dL Hct 35.5 L (36.0-46.0) % Plt Count 242 (140-440) Thou/mm3 BMP 12/14/24 09:57 Sodium 138 Potassium 4.0 Chloride 104 Carbon Dioxide 22.5 BUN 12 Creatinine 1.0 Glucose 134 H Calcium 9.4 Liver Function 12/14/24 Range/Units 09:57 Total Bilirubin 0.3 (0.3-1.2) mg/dL AST 23 (0-34) U/L ALT 16 (10-49) U/L Alkaline Phosphatase 68 (46-116) U/L Albumin 4.3 (3.4-4.8) gm/dL Urine 12/14/24 Range/Units 08:20 Urine Color Yellow (Lt Yel-Yel) Urine Clarity Clear (Clear/Hazy) Urine pH 6.0 (5.0-7.0) Ur Specific [place] 1.025 (1.001-1.035) Urine Protein 2+ A (Neg - Trace) Urine Glucose (UA) Negative (Negative) Assessment and Plan Additional Assessment & Plan Additional Plan: # Idiopathic pancreatitis MRCP If negative would recommend EUS at a tertiary center # Pain abdomen nausea vomiting secondary to above Repeat lipase level and amylase level in the morning Other medical problems include Coronary artery status post CABG 2009 Multiple myeloma on Revlimid Right breast carcinoma in remission post right mastectomy By lower extremity neuropathy Kidney stone history Thank you very much for the opportunity to participate in the care of this patient
[2024-12-15] VITALS (8 sets, daily range): BP systolic 121–157; BP diastolic 64–81; PULSE 55–91; RESP 17–18; TEMP 36.1–36.3; O2SAT 95–99
--- NOTE | 2024-12-15 | XR_ITS ---
MRI abdomen, without contrast. MRCP Date and time of exam: December 15, 2024 1249 hours INDICATIONS: Cholecystectomy 20 years ago, CT abdomen pelvis December 14, 2024 suspicious for pancreatitis, upper abdominal pain this week Technique: Multiple axial and coronal images of the abdomen have been obtained with the Siemens 1.5T MRI scanner. Images obtained included T1 weighted transverse images, T2-weighted transverse images, T2-weighted transverse images fat-suppressed, T2 weighted haste fat suppressed transverse images, T1 weighted images, in and out of phase images, T2-weighted coronal images, breath hold, T2 weighted haze coronal images as well as T2 weighted coronal thick slab images, MRCP. Findings: Intrahepatic biliary tract dilatation Absent gallbladder Common hepatic duct 7 mm, no common hepatic or common bile duct stones Minimal edema around the head of the pancreas axial image 18 Spleen is not enlarged No ascites No hydronephrosis No adenopathy IMPRESSION: Minimal edema around the head of the pancreas, clinical correlation advised
[2024-12-15] MEDS: ACETAMINOPHEN IVPB 1,000 MG/100 ML VIAL 250 MG IV ×2 (01:01→08:33)
[2024-12-15] MEDS: RINGERS LACTATED 1000 ML 1,000 ML 85 ML IV (01:33)
[2024-12-15 06:06] LABS: Basophils # (Auto) 0.0 Thou/mm3 (0.0-0.2); Basophils % (Auto) 1 % (0-2.5); Eosinophils # (Auto) 0.1 Thou/mm3 (0.0-0.5); Eosinophils % (Auto) 3 % (0-10); Hematocrit 32.0 % (36.0-46.0); Hemoglobin 10.4 g/dL (12.0-16.0); Immature Granulocytes Auto 0.00 Thou/mm3 (0.00-0.00); Lymphocytes # (Auto) 1.7 Thou/mm3 (1.0-4.8); Lymphocytes % (Auto) 35 % (10-50); Mean Corpuscular HGB Conc 32.5 g/dl (31.0-37.0); Mean Corpuscular Hemoglobin 28.3 pg (25.0-35.0); Mean Corpuscular Volume 87 fL (80-100); Monocytes # (Auto) 0.3 Thou/mm3 (0.0-0.8); Monocytes % (Auto) 6 % (0-12); Neutrophils # (Auto) 2.7 Thou/mm3 (1.8-7.7); Neutrophils % (Auto) 55 % (37-80); Nucleated Red Blood Cell # 0.00 Thou/mm3 (0.00-0.00); Nucleated Red Blood Cell % 0 /100 WBC (0); Platelet Count 192 Thou/mm3 (140-440); RDW Standard Deviation 48.1 fL (36.4-46.3); Red Blood Count 3.67 Miln/mm3 (4.00-5.20); White Blood Count 5.0 Thou/mm3 (3.6-11.0)
[2024-12-15 06:16] LABS: Glucose Estimated Average 140 mg/dL (80-131); Hemoglobin A1C 6.5 % Hgb (4.8-6.0)
[2024-12-15] MEDS: LEVOTHYROXINE SODIUM 125 MCG TABLET PO (06:28)
[2024-12-15 06:46] LABS: Alanine Aminotransferase 47 U/L (10-49); Albumin, Serum 3.6 gm/dL (3.4-4.8); Albumin/Globulin Ratio 1.6 (1.2-2.2); Alkaline Phosphatase 87 U/L (46-116); Amylase 77 U/L (30-118); Anion Gap 11 (7-16); Aspartate Amino Transferase 74 U/L (0-34); BUN/Creatinine Ratio 9 Ratio (12-20); Bilirubin,Total 0.3 mg/dL (0.3-1.2); Blood Urea Nitrogen 8 mg/dL (9-23); Calcium 8.3 mg/dL (8.3-10.6); Calcium (Corrected) 8.6 mg/dL (8.5-10.1); Carbon Dioxide 22.5 mMol/L (20.0-31.0); Chloride 107 mMol/L (98-107); Creatinine (Component) 0.9 mg/dL (0.6-1.3); Estimated Creatinine Clearance 39.3 mL/min (>60); Globulin 2.3 gm/dL (2.3-3.5); Glucose 91 mg/dL (74-106); Lipase 23 U/L (12-53); Magnesium 2.2 mg/dL (1.6-2.6); Osmolality,Calculated 277 (275-295); Phosphorous 2.5 mg/dL (2.4-5.1); Potassium 4.0 mMol/L (3.4-5.1); Sodium 140 mMol/L (136-145); Total Protein 5.9 gm/dL (5.7-8.2); eGFR > 60 See Note
[2024-12-15] MEDS: HEPARIN SOD INJ 5000 UNIT/ML VIAL SC ×2 (08:34→21:05)
[2024-12-15] MEDS: ATORVASTATIN CALCIUM 20 MG TABLET 80 MG PO (08:34)
--- NOTE | 2024-12-15 10:40 | ESPR_ITS ---
Documentation for date of: 12/15/24 Subjective Subjective Interval history: Ms Gray is a 79 year old woman with hx of HTN CVD s/p CABG 2009. , myeloma (diagnosed in 2019, on revlimid), breast cancer s/p R mastectomy (in remission), dysphagia (previously seen by sandra for esopageal dilation 09/2024), BLE neuropathy and kidney stone who reports that she has been experiencing about 1 month of mild-moderate epigastric pain that radiated to her back, associated with nausea and vomiting. the pain has progressively worsened, which prompted her to present to the ED in [place]. Per the patient and her daughter Emma, she was diagnosed with pancreatitis, and discharged with NORCO however her symptoms persisted and worsened. 12/14/2024: patient seen and examined at bedside in the ED with daughter Emma, mild epigastric tenderness to palpation and R abdominal pain no rebound or guarding. pt reports 3x small volume emesis while in the ED. plan to admit to inpatient, NPO and supportive measures for mild pancreatitis. 12/15/2024: Patient seen and examined at bedside with daughter Emma and Geo. pt appears much more comfortable compared to on admission, minimal epigastric tenderness to palpation. no rebound or guarding, no n/v/f Lipase 23 from 54 and Amylase wnl. Pain is well controlled. No BM for past 2 days she remains NPO pending MRCP. Exam Vital Signs Temp Pulse Resp BP Pulse Ox O2 Del Method 97.1 F 91 18 146/64 H 98 Room Air 12/15/24 08:00 12/15/24 08:34 12/15/24 08:00 12/15/24 08:34 12/15/24 08:00 12/15/24 08:00 Narrative Exam GENERAL APPEARANCE: Patient seems to be comfortable, adequately hydrated and nourished. Currently seen in the emergency department HEENT: EOMI, PERRLA NECK: Neck supple, no JVD or bruit CARDIOVASCULAR: Heart regular, no murmurs LUNGS/CHEST: Fine crackles ABDOMEN: Soft, nontender to palpation c/o epigastric tenderness. Mild distention noted. No masses. Normal bowel sounds. EXTREMITIES: 1+ edema in the lower extremities SKIN: Stasis dermatitis noted in the legs NEUROLOGICAL : able to move her extremities Objective Labs 12/16/24 04:46 12/16/24 04:46 Labs: Laboratory Results - last 24 hr 12/14/24 12/14/24 12/15/24 08:20 09:57 05:09 WBC 5.0 RBC 3.67 L Hgb 10.4 L Hct 32.0 L MCV 87 MCH 28.3 MCHC 32.5 RDW Std Deviation 48.1 H Plt Count 192 D Neut % (Auto) 55 Lymph % (Auto) 35 [place] % (Auto) 6 Eos % (Auto) 3 Baso % (Auto) 1 Neut # (Auto) 2.7 Lymph # (Auto) 1.7 [place] # (Auto) 0.3 Eos # (Auto) 0.1 Baso # (Auto) 0.0 Immature Gran # (Auto) 0.00 Absolute Nucleated RBC 0.00 Immature Gran % 0 Nucleated RBC % 0 Sodium 140 Potassium 4.0 Chloride 107 Carbon Dioxide 22.5 Anion Gap 11 BUN 8 L Creatinine 0.9 Estim Creat Clear Calc 39.3 L eGFR > 60 BUN/Creatinine Ratio 9 L Glucose [address] Glu mg/dL 140 H Hemoglobin A1c 6.5 H Calculated Osmolality 277 Calcium 8.3 Corrected Calcium 8.6 Phosphorus 2.5 Magnesium 2.2 Total Bilirubin 0.3 AST 74 H ALT 47 Alkaline Phosphatase 87 D C-Reactive Prot, Quant < 0.5 Total Protein 5.9 Albumin 3.6 D Globulin 2.3 Albumin/Globulin Ratio 1.6 Triglycerides 129 Cholesterol 103 L LDL Cholesterol, Calc 32 HDL Cholesterol 45 Cholesterol/HDL Ratio 2.3 L Amylase 77 Lipase 23 D Ur Collection Type Clean Catch Urine Color Yellow Urine Clarity Clear Urine pH 6.0 Ur Specific [place] 1.025 Urine Protein 2+ A Urine Glucose (UA) Negative Urine Ketones Negative Urine Blood Trace Urine Nitrite Negative Urine Bilirubin Negative Urine Urobilinogen (Auto) 0.2 Ur Leukocyte Esterase Negative Urine RBC 2 Urine WBC 2 Ur Squamous Epith Cells 6 H Urine Bacteria Rare Quality Measures Quality Measures VTE prophylaxis Advance care planning discussed with:: patient, spouse and child Assessment & Plan Assessment Current Active Medications: Generic Name Dose Route Start Last Admin Trade Name Freq PRN Reason Stop Dose Admin Amlodipine Besylate 5 mg 12/14/24 16:15 12/14/24 17:30 Amlodipine Besylate 5 Mg Tablet PO 01/13/25 16:14 5 mg QDAY ULISES Administration Atorvastatin Calcium 80 mg 12/15/24 09:00 12/15/24 08:34 Atorvastatin Calcium 20 Mg Tablet PO 01/14/25 08:59 80 mg DAILY ULISES Administration Protocol Heparin Sodium (Porcine) 5,000 unit 12/14/24 21:00 12/15/24 08:34 Heparin Sod Inj 5000 Unit/Ml Vial SC 12/28/24 20:59 5,000 unit Q12HR ULISES Administration Hydromorphone HCl 0.75 mg 12/14/24 13:32 Hydromorphone Inj 2 Mg/Ml Vial IVP 12/19/24 13:31 Q6HR PRN pain Lactated Ringer's 1,000 mls @ 85 mls/hr 12/14/24 13:23 12/15/24 01:33 Lactated Ringers IV 12/15/24 12:54 85 mls/hr .[id number] ULISES Administration Levothyroxine Sodium 125 mcg 12/15/24 06:00 12/15/24 06:28 Levothyroxine Sodium 125 Mcg Tablet PO 01/14/25 05:59 125 mcg ACBR ULISES Administration Lisinopril 30 mg 12/15/24 09:00 12/15/24 08:34 Lisinopril 20 Mg Tablet PO 01/14/25 08:59 30 mg QDAY ULISES Administration Ondansetron HCl 4 mg 12/14/24 13:39 Ondansetron Inj 2 Mg/Ml Inj 2 Ml IVP 01/13/25 13:38 Q6H PRN NAUSEA OR VOMITING Protocol Pantoprazole Sodium 40 mg 12/14/24 13:45 12/15/24 08:35 Pantoprazole Inj 40 Mg Vial IVP 01/13/25 13:44 40 mg QDAY ULISES Administration Sennosides 1 tab 12/14/24 15:58 Senna Tablet PO 01/14/25 08:59 QDAY PRN constipation Protocol Plan Ms Gray is a 79 year old woman with hx of HTN CVD s/p CABG 2009. myeloma (diagnosed in 2019, on revlimid), breast cancer s/p R mastectomy (in remission), dysphagia (previously seen by sandra for esopageal dilation 09/2024), BLE neuropathy and kidney stone who reports that she has been experiencing about 1 month of mild-moderate epigastric pain that radiated to her back, associated with nausea and vomiting. the pain has progressively worsened, which prompted her to present to the ED in [place]. Admitted for supportive care and evaluation of epigastric pain. Lipase mildly elevated now wnl, amylase wnl. pending MRCP, GI Consulted. #Mild Pancreatitis pt reports 1 month of epigastric pain that radiates to the back, previously seen by ED in [place] for pancreatitis and was discharged with NORCO for pain, pt pain has progressively worsened and anorexia persists CTAP with c/f colitis and pancreatitis, GB abscent (s/p cholecystectomy years ago) rec MRCP Lipase elevated 54, now wnl, CRP wnl. amylase wnl Plan - NPO - IV fluids, LR 85ml/hr - Pain: dilaudid 0.5 mg q6hr prn - GI consulted, appreciate recs, pending MRCP #HTN #CVD s/p CABG in 2009 inpatient SBP 140s - lisinopril 30 mg qd - d/c home amlodipine mg qd per outpatient cardiac recs #Multiple myeloma (dx in 2018) continues on revlimid 5 mg q21 days and 7 days off #R breast cancer s/p R mastectomy 2023 -in remission #HLD - rosouvastatin 20 mg QHS #GERD #hx dyspagia s/p dilation with flores in 2024 - protonix 40 #Normocytic anemia #query Anemia of chronic disease given hx of MM Hgb Stable Dispo: home pending MRCP, remains NPO Diet: NPO, will advance as tolerated following MRCP Bowel Reg: Senna 1 tab PRN VTE ppx: Heparin sub cutaneous GI ppx: protonix Code status:FULL Plan discussed with nephrology attending Dr. Anatoly Mccall MD Internal Medicine PGY-1 Attending Provider Attestation/Addendum Patient seen and examined with resident physician Dr. Mccall. Note reviewed, agree with findings and recommendations. Patient admitted with pancreatitis- etiology unclear.Liver enzymes normal, lipase tad elevated at 54. Abdominal CT showed mild edema around the pancreatic head. Gallbladder absent. Patient seems to be in significant discomfort out of proportion to her labs. Will request Dr. Flores consult. Continue with Dilaudid for now. IV fluids were given. Magnesium was replaced. Plan of care discussed with daughter at bedside. 12/15/[address] Flores-MRCP was negative. Suggested clear liquid diet. He might need EUS as a outpatient. Gave her a stool softener. Abdominal pain much better today. Lipase better
--- NOTE | 2024-12-15 12:17 | PC.SS ---
Patient is alert/oriented. Patient was able to verify demographics. Patient was admitted for pancreatitis. Patient resides at [address] [place] [address] in [place] with spouse. Patient states she's independent with ADL's. She uses a wheelchair for long distances only. Patient PCP: Dr. Ledbetter. Last appt. was a week ago. Patient is in remission from cancer and also follows with Dr. Odonnell in [facility]. Patient d/c plan is to return home. Patient is pending echo. Alt medical decision maker: DaughterEmma, transportation: family
[2024-12-15] MEDS: HYDROmorphone INJ 2 MG/ML VIAL 0.75 MG IVP (17:27)
--- NOTE | 2024-12-15 17:49 | PD.IMPROG ---
Documentation for date of: 12/15/24 Subjective Subjective Interval history: Slightly elevated AST otherwise normal LFTs including total bilirubin 0.3 MRCP shows mild edema of the head of the pancreas CBD 7 mm no stones Exam Vital Signs Temp Pulse Resp BP Pulse Ox O2 Del Method 97.1 F 60 17 135/65 H 96 Room Air 12/15/24 16:00 12/15/24 16:00 12/15/24 16:00 12/15/24 16:00 12/15/24 16:00 12/15/24 16:00 Objective Labs 12/15/24 05:09 12/15/24 05:09 Labs: Laboratory Results - last 24 hr 12/15/24 05:09 WBC 5.0 RBC 3.67 L Hgb 10.4 L Hct 32.0 L MCV 87 MCH 28.3 MCHC 32.5 RDW Std Deviation 48.1 H Plt Count 192 D Neut % (Auto) 55 Lymph % (Auto) 35 [place] % (Auto) 6 Eos % (Auto) 3 Baso % (Auto) 1 Neut # (Auto) 2.7 Lymph # (Auto) 1.7 [place] # (Auto) 0.3 Eos # (Auto) 0.1 Baso # (Auto) 0.0 Immature Gran # (Auto) 0.00 Absolute Nucleated RBC 0.00 Immature Gran % 0 Nucleated RBC % 0 Sodium 140 Potassium 4.0 Chloride 107 Carbon Dioxide 22.5 Anion Gap 11 BUN 8 L Creatinine 0.9 Estim Creat Clear Calc 39.3 L eGFR > 60 BUN/Creatinine Ratio 9 L Glucose [address] Glu mg/dL 140 H Hemoglobin A1c 6.5 H Calculated Osmolality 277 Calcium 8.3 Corrected Calcium 8.6 Phosphorus 2.5 Magnesium 2.2 Total Bilirubin 0.3 AST 74 H ALT 47 Alkaline Phosphatase 87 D Total Protein 5.9 Albumin 3.6 D Globulin 2.3 Albumin/Globulin Ratio 1.6 Amylase 77 Lipase 23 D Impressions Impression: Idiopathic pancreatitis versus biliary pancreatitis with the passage of the CBD stone that is possible before the MRCP was done Advance diet as tolerated Outpatient EUS Assessment & Plan A&P Narrative # Idiopathic pancreatitis MRCP If negative would recommend EUS at a tertiary center # Pain abdomen nausea vomiting secondary to above Repeat lipase level and amylase level in the morning Other medical problems include Coronary artery status post CABG 2009 Multiple myeloma on Revlimid Right breast carcinoma in remission post right mastectomy By lower extremity neuropathy Kidney stone history Thank you very much for the opportunity to participate in the care of this patient Time Spent With Patient Time: Total time spent is greater than 50% in coordination of care (as documented) at patient's floor/unit and/or counseling patient:
[2024-12-16] VITALS (7 sets, daily range): BP systolic 143–171; BP diastolic 62–74; PULSE 51–65; RESP 16–18; TEMP 36.1–36.8; O2SAT 94–98
[2024-12-16 06:04] LABS: Basophils # (Auto) 0.0 Thou/mm3 (0.0-0.2); Basophils % (Auto) 1 % (0-2.5); Eosinophils # (Auto) 0.1 Thou/mm3 (0.0-0.5); Eosinophils % (Auto) 2 % (0-10); Hematocrit 32.2 % (36.0-46.0); Hemoglobin 10.4 g/dL (12.0-16.0); Immature Granulocytes Auto 0.01 Thou/mm3 (0.00-0.00); Lymphocytes # (Auto) 1.9 Thou/mm3 (1.0-4.8); Lymphocytes % (Auto) 37 % (10-50); Mean Corpuscular HGB Conc 32.3 g/dl (31.0-37.0); Mean Corpuscular Hemoglobin 28.1 pg (25.0-35.0); Mean Corpuscular Volume 87 fL (80-100); Monocytes # (Auto) 0.4 Thou/mm3 (0.0-0.8); Monocytes % (Auto) 7 % (0-12); Neutrophils # (Auto) 2.6 Thou/mm3 (1.8-7.7); Neutrophils % (Auto) 52 % (37-80); Nucleated Red Blood Cell # 0.00 Thou/mm3 (0.00-0.00); Nucleated Red Blood Cell % 0 /100 WBC (0); Platelet Count 191 Thou/mm3 (140-440); RDW Standard Deviation 47.3 fL (36.4-46.3); Red Blood Count 3.70 Miln/mm3 (4.00-5.20); White Blood Count 5.1 Thou/mm3 (3.6-11.0)
[2024-12-16] MEDS: LEVOTHYROXINE SODIUM 125 MCG TABLET PO (06:27)
[2024-12-16 06:29] LABS: Alanine Aminotransferase 31 U/L (10-49); Albumin, Serum 3.6 gm/dL (3.4-4.8); Albumin/Globulin Ratio 1.4 (1.2-2.2); Alkaline Phosphatase 80 U/L (46-116); Anion Gap 12 (7-16); Aspartate Amino Transferase 40 U/L (0-34); BUN/Creatinine Ratio 10 Ratio (12-20); Bilirubin,Total 0.3 mg/dL (0.3-1.2); Blood Urea Nitrogen 10 mg/dL (9-23); Calcium 8.4 mg/dL (8.3-10.6); Calcium (Corrected) 8.7 mg/dL (8.5-10.1); Carbon Dioxide 22.4 mMol/L (20.0-31.0); Chloride 105 mMol/L (98-107); Creatinine (Component) 1.0 mg/dL (0.6-1.3); Estimated Creatinine Clearance 35.4 mL/min (>60); Globulin 2.5 gm/dL (2.3-3.5); Glucose 141 mg/dL (74-106); Lipase 27 U/L (12-53); Magnesium 2.0 mg/dL (1.6-2.6); Osmolality,Calculated 278 (275-295); Phosphorous 2.5 mg/dL (2.4-5.1); Potassium 3.7 mMol/L (3.4-5.1); Sodium 139 mMol/L (136-145); Total Protein 6.1 gm/dL (5.7-8.2); eGFR 57 See Note
[2024-12-16] MEDS: HEPARIN SOD INJ 5000 UNIT/ML VIAL SC (08:45)
[2024-12-16] MEDS: ATORVASTATIN CALCIUM 20 MG TABLET 80 MG PO (08:45)
--- NOTE | 2024-12-16 10:00 | PC.SS ---
Addendum entered by Leisa Hess 12/16/24 10:07: No SS needs at this time. Pt does her own ADLs and uses a wheel chair at home. Original Note: 1000-ASW contacted the pts daughter Emma Gray [phone] to inform her that the pt will be ready for d/c today. Emma stated she is aware as the attending provider made her aware this AM. Emma reported she or her father will be tranporting the pt home.
--- NOTE | 2024-12-16 10:05 | PC.SS ---
1005-ASW contacted pts daughter Paula Linn [phone] to ask who would be transporting the pt home upon d/c. Paula reported that either she or her brother will be picking up the pt when the pt is ready for d/c.
--- NOTE | 2024-12-16 12:05 | PD.RESDS ---
Planned Discharge Date 12/16/24 DS: Providers Provider Date of admission: 12/14/24 12:46 Primary care physician: Reza Ledbetter MD Admitting Provider: Reza Ledbetter MD Attending Provider on Admission: Reza Ledbetter MD Consults: 12/14/24 21:08 Consult to Gastroenterology Routine Comment: Pancreatitis Consulting Provider: Cory Lucas Attending Provider on DC: RESIDENT Ana Discharging Provider: RESIDENT Ana DS: Diagnosis Problem List Completed Was Problem List Reviewed/Reconciled?: Yes Hospital Course Hospital Course Hospital course: Summary: Ms. Gray is an 79-year old woman with hx of HTN CVD s/p CABG 2009, myeloma (diagnosed in 2019, on revlimid), breast cancer s/p R mastectomy (in remission), dysphagia (previously seen by Dr. Lucas for esophageal dilation 09/2024), and BLE neuropathy and kidney stone who reports that she has been experiencing about 1 month of mild-moderate epigastric pain that radiates to her back, associated with nausea and vomiting. ER: Patient presented to the ED and was seen by ED provider at 09:16 on 12/14/24 for their presentation of RLQ abdominal pain. At the time, labs were remarkable for high lipase [address] suspicious for acute pancreatitis. Patient was given IV Dilaudid, IV morphine, IV magnesium sulfate, IV Zofran, and 1 L NS bolus. Patient was admitted by Dr. Ledbetter for work-up and management of mild pancreatitis. Hospital: During patient's hospital course, the main medical diagnosis addressed was acute pancreatitis. In terms of acute pancreatitis, patient was treated with standard supportive management that included moderate IV maintenance fluids, pain control, and NPO with diet advancement as tolerated. Dr. Lucas was consulted to further work-up the underlying etiology and ordered an MRCP which was found to be negative. Over the course of her stay, patient's pain improved and it was decided to discharge her with dicyclomine and Colace with a plan for her to follow-up with Dr. Lucas and Dr. Ledbetter in 1-2 weeks. Patient is safe to discharge to home. Further discharge instructions below. #Mild Pancreatitis #HTN #CVD s/p CABG in 2009 #Multiple myeloma (dx in 2018) #R breast cancer s/p R mastectomy 2023 #HLD #GERD #hx dyspagia s/p dilation with sandra in 2024 #Normocytic anemia Status at Discharge Cognitive/Behavioral Status at Discharge: stable Functional Status at Discharge: independent ambulation Overall Status at Discharge: patient is back to baseline Total Time Spent Providing and/or Coordinating Discharge Services: at least 30 minutes of care and coordination Status at Discharge Cognitive/behavioral status at discharge: stable Functional status at discharge: wheelchair bound Overall status at discharge: patient is progressing back to baseline Time Spent with Patient Time attestation: Total time spent providing and/or coordinating discharge services: Time spent: Greater than 30 minutes Exam Vital Signs Temp Pulse Resp BP Pulse Ox O2 Del Method 98.1 F 51 L 16 149/62 H 97 Room Air 12/16/24 07:54 12/16/24 08:45 12/16/24 07:54 12/16/24 08:45 12/16/24 07:54 12/16/24 07:54 Narrative Exam GENERAL APPEARANCE: Patient seems to be comfortable, adequately hydrated and nourished. Currently seen in Medical floor NECK: Neck supple, no JVD or bruit CARDIOVASCULAR: Heart regular, no murmurs LUNGS/CHEST: Fine crackles ABDOMEN: Soft, nontender to palpation c/o mild epigastric tenderness. Mild distention noted. No masses. Normal bowel sounds. EXTREMITIES: 1+ edema in the lower extremities SKIN: Stasis dermatitis noted in the legs NEUROLOGICAL : able to move her extremities Discharge Plan Plan Patient Disposition: HOME (Self Care) Care Plan Goals: Follow up with Dr. Ledbetter in 1-2 weeks. Follow up with Dr. Lucas in 1-2 weeks. If your symptoms return or worsen, please return to the emergency room. Prescriptions/Referrals Prescriptions/Med Rec: New dicyclomine 10 mg capsule 10 mg PO BID PRN (Reason: abdominal pain) Qty: 30 0RF docusate sodium [Colace] 100 mg capsule 100 mg PO QDAY PRN (Reason: constipation) Qty: 30 0RF Continued rosuvastatin 20 mg tablet 20 mg PO DAILY Patient Comments: TAKE 1 TABLET BY MOUTH EVERY DAY pantoprazole 40 mg tablet,delayed release (DR/EC) 40 mg PO DAILY Patient Comments: TAKE 1 TABLET BY MOUTH EVERY DAY lisinopril 30 mg tablet 30 mg PO DAILY Patient Comments: TAKE 1 TABLET BY MOUTH EVERY DAY levothyroxine 125 mcg tablet 125 mcg PO DAILY Patient Comments: TAKE 1 TABLET BY MOUTH DAILY amlodipine 5 mg tablet 5 mg PO DAILY Patient Comments: TAKE 1 TABLET BY MOUTH EVERY DAY alprazolam 0.5 mg tablet 0.5 mg PO TID Patient Comments: TAKE 1 TABLET BY MOUTH THREE TIMES DAILY NEEDED FOR ANXIETY aspirin 81 mg capsule 81 mg PO QDAY potassium chloride 10 mEq tablet extended release 10 meq PO QDAY Patient Comments: TAKE 1 TABLET BY MOUTH DAILY Discontinued naproxen 500 mg tablet 500 mg PO BID PRN (Reason: pain) Patient Comments: TAKE 1 TABLET BY MOUTH TWICE DAILY NEEDED FOR MILD PAIN. GENERIC FOR NAPROSYN diphenoxylate-atropine 2.5-0.025 mg tablet 1 tab PO DAILY PRN (Reason: diarrhea) Patient Comments: TAKE 1 TABLET BY MOUTH FOUR TIMES DAILY NEEDED FOR LOOSE STOOLS valacyclovir [Valtrex] 500 mg tablet 500 mg PO QDAY Referrals: Cory Lucas MD [Physician] - Reza Ledbetter MD [Primary Care Provider] - Patient/Caregiver Discharge Instructions Discharge Activity: activity as tolerated Education Materials: Understanding Pancreatitis, Pancreatitis Acute Dc Print Language: Bahraini Activity Restrictions/Additional Instructions: f/u with dr. ledbetter, Dr. Lucas-- 1-2 weeks Stand Alone Forms: [employer] Award Info., Patient Portal Info Letter Discharge Order Discharge Orders: Discharge (Routine); Ordered 12/16/24 Ordered By: Reza Ledbetter Quality Discharge Quality Measures VTE prophylaxis (heparin) Attestestation MD Attestation Patient seen and examined with resident physician Dr. Joseph. Note reviewed, agree with findings and recommendations. Patient admitted with pancreatitis-etiology unclear.Liver enzymes normal, lipase tad elevated at 54. Abdominal CT showed mild edema around the pancreatic head. Gallbladder absent. Patient seems to be in significant discomfort out of proportion to her labs. Will request Dr. Lucas consult. Continue with Dilaudid for now. IV fluids were given. Magnesium was replaced. Plan of care discussed with daughter at bedside. 12/16/2024 Daughter at bedside. Abdominal pain slightly better. Decided to proceed with discharge on p.o. dicyclomine, p.o. Colace. He she had a good bowel movement. MRCP was negative for any stones. Lipase normal. Patient tolerated soft diet. Her daughter agreed to follow-up with Dr. Lucas and myself in 1 to 2 weeks
== END 2024-12-16 15:04 | disposition home or self-care (01) | DRG 439 ==
LOC: SERX 11:24 → SERHOLD 12-15 05:55 → S3SX 12-15 05:55
PROVIDERS: Registered Nurse General Practice; Admitting Provider Internal Medicine; Emergency Provider Emergency Medicine; PCP Internal Medicine; Visit Provider Internal Medicine
DX: K85.90 Acute pancreatitis without necrosis or infection, unspecified (principal); C90.00 Multiple myeloma not having achieved remission; I10 Essential (primary) hypertension; Z95.1 Presence of aortocoronary bypass graft; I25.10 Atherosclerotic heart disease of native coronary artery without angina pectoris; Z85.3 Personal history of malignant neoplasm of breast; D64.9 Anemia, unspecified; E78.5 Hyperlipidemia, unspecified; G57.90 Unspecified mononeuropathy of unspecified lower limb; K21.00 Gastro-esophageal reflux disease with esophagitis, without bleeding; K57.30 Diverticulosis of large intestine without perforation or abscess without bleeding; K29.70 Gastritis, unspecified, without bleeding; K29.80 Duodenitis without bleeding; Z79.82 Long term (current) use of aspirin; Z79.890 Hormone replacement therapy; Z87.442 Personal history of urinary calculi; Z90.11 Acquired absence of right breast and nipple
CPT/HCPCS: 36415; 74176; 74181; 80053; 80061; 80307; 81001; 82150; 83036; 83605; 83690; 83735; 83880; 84100; 85025; 85610; 85730; 86140; 93005; 93225; 96361; 96365; 96366; 96375; 96376; 99284; J0131; J1171; J1644; J2270; J2405; J2470; J3475; J7120; J7999; A9270

== ENCOUNTER → 2025-01-31 | Outpatient (CLI) | payer MEDICARE, BC, SELFPAY ==
[2025-01-31 10:11] LABS: Collection Type, Urine Clean Catch
[2025-01-31 10:53] LABS: Basophils # (Auto) 0.1 Thou/mm3 (0.0-0.2); Basophils % (Auto) 1 % (0-2.5); Eosinophils # (Auto) 0.1 Thou/mm3 (0.0-0.5); Eosinophils % (Auto) 2 % (0-10); Hematocrit 33.8 % (36.0-46.0); Hemoglobin 11.0 g/dL (12.0-16.0); Immature Granulocytes Auto 0.02 Thou/mm3 (0.00-0.00); Lymphocytes # (Auto) 1.8 Thou/mm3 (1.0-4.8); Lymphocytes % (Auto) 29 % (10-50); Mean Corpuscular HGB Conc 32.5 g/dl (31.0-37.0); Mean Corpuscular Hemoglobin 27.2 pg (25.0-35.0); Mean Corpuscular Volume 84 fL (80-100); Monocytes # (Auto) 0.5 Thou/mm3 (0.0-0.8); Monocytes % (Auto) 8 % (0-12); Neutrophils # (Auto) 3.8 Thou/mm3 (1.8-7.7); Neutrophils % (Auto) 60 % (37-80); Nucleated Red Blood Cell # 0.00 Thou/mm3 (0.00-0.00); Nucleated Red Blood Cell % 0 /100 WBC (0); Platelet Count 175 Thou/mm3 (140-440); RDW Standard Deviation 50.5 fL (36.4-46.3); Red Blood Count 4.05 Miln/mm3 (4.00-5.20); White Blood Count 6.2 Thou/mm3 (3.6-11.0)
[2025-01-31 10:53] LABS: Bilirubin,Urine Negative (Negative); Blood,Urine 1+ (Negative); Clarity,Urine Clear (Clear/Hazy); Color,Urine Yellow (Lt Yel-Yel); Glucose, Urine Negative (Negative); Ketones,Urine Negative (Negative); Leukocyte Esterase,Urine Negative (Negative); Nitrite,Urine Negative (Negative); PH,Urine 6.5 (5.0-7.0); Protein,Urine 2+ (Neg - Trace); RBC,Urine 4 /hpf (0-3); Specific Gravity,Urine 1.018 (1.001-1.035); Squamous Epithelial Cell,Urine 10 /hpf (0-5); Urobilinogen,Urine Negative mg/dL (0.0-1.0); WBC,Urine 1 /hpf (0-5)
[2025-01-31 11:38] LABS: Alanine Aminotransferase 39 U/L (10-49); Albumin, Serum 4.1 gm/dL (3.4-4.8); Albumin/Globulin Ratio 1.4 (1.2-2.2); Alkaline Phosphatase 82 U/L (46-116); Anion Gap 12 (7-16); Aspartate Amino Transferase 55 U/L (0-34); BUN/Creatinine Ratio 10 Ratio (12-20); Bilirubin,Total 0.6 mg/dL (0.3-1.2); Blood Urea Nitrogen 11 mg/dL (9-23); Calcium 9.3 mg/dL (8.3-10.6); Calcium (Corrected) 9.3 mg/dL (8.5-10.1); Carbon Dioxide 27.9 mMol/L (20.0-31.0); Cardiac Risk Estimate 3.1 RATIO (3.7-5.6); Chloride 103 mMol/L (98-107); Cholesterol 198 mg/dL (132-200); Creatinine (Component) 1.1 mg/dL (0.6-1.3); Globulin 2.9 gm/dL (2.3-3.5); Glucose 122 mg/dL (74-106); HDL Cholesterol 63 mg/dL (40-60); LDL Cholesterol,Calculated 95 mg/dL (0-130); Osmolality,Calculated 285 (275-295); Potassium 2.8 mMol/L (3.4-5.1); Sodium 143 mMol/L (136-145); Total Protein 7.0 gm/dL (5.7-8.2); Triglycerides 201 mg/dL (30-150); eGFR 50 See Note
== END | disposition home or self-care (01) ==
LOC: COPL 09:46
PROVIDERS: PCP Internal Medicine; Referring Provider Internal Medicine; Visit Provider Internal Medicine
DX: I10 Essential (primary) hypertension (principal); E78.5 Hyperlipidemia, unspecified
CPT/HCPCS: 36415; 80053; 80061; 81001; 85025

== ENCOUNTER → 2025-03-02 | Outpatient (CLI) | payer MEDICARE, SELFPAY ==
[2025-03-02 11:14] LABS: Albumin, Serum 4.5 gm/dL (3.4-4.8); Anion Gap 11 (7-16); BUN/Creatinine Ratio 9 Ratio (12-20); Blood Urea Nitrogen 11 mg/dL (9-23); Calcium 9.7 mg/dL (8.3-10.6); Calcium (Corrected) 9.7 mg/dL (8.5-10.1); Carbon Dioxide 29.3 mMol/L (20.0-31.0); Chloride 100 mMol/L (98-107); Creatinine (Component) 1.2 mg/dL (0.6-1.3); Glucose 131 mg/dL (74-106); Osmolality,Calculated 280 (275-295); Phosphorous 3.3 mg/dL (2.4-5.1); Potassium 2.9 mMol/L (3.4-5.1); Sodium 140 mMol/L (136-145); eGFR 45 See Note
== END | disposition home or self-care (01) ==
PROVIDERS: PCP Internal Medicine; Referring Provider Internal Medicine; Visit Provider Internal Medicine
DX: N18.9 Chronic kidney disease, unspecified (principal)
CPT/HCPCS: 36415; 80069

== ENCOUNTER → 2025-03-28 | Outpatient (CLI) | payer MEDICARE, SELFPAY ==
[2025-03-28 11:53] LABS: Alanine Aminotransferase 20 U/L (10-49); Albumin, Serum 4.9 gm/dL (3.4-4.8); Alkaline Phosphatase 77 U/L (46-116); Anion Gap 14 (7-16); Aspartate Amino Transferase 37 U/L (0-34); BUN/Creatinine Ratio 9 Ratio (12-20); Bilirubin,Direct 0.2 mg/dL (0.0-0.3); Bilirubin,Total 0.5 mg/dL (0.3-1.2); Blood Urea Nitrogen 11 mg/dL (9-23); Calcium 9.5 mg/dL (8.3-10.6); Carbon Dioxide 27.3 mMol/L (20.0-31.0); Chloride 102 mMol/L (98-107); Creatinine (Component) 1.2 mg/dL (0.6-1.3); Glucose 148 mg/dL (74-106); Magnesium 1.9 mg/dL (1.6-2.6); Osmolality,Calculated 287 (275-295); Phosphorous 2.9 mg/dL (2.4-5.1); Potassium 2.8 mMol/L (3.4-5.1); Sodium 143 mMol/L (136-145); Total Protein 7.9 gm/dL (5.7-8.2); eGFR 45 See Note
[2025-03-28 12:23] LABS: Collection Type, Urine Clean Catch
[2025-03-28 12:53] LABS: Bilirubin,Urine Negative (Negative); Blood,Urine 1+ (Negative); Clarity,Urine Clear (Clear/Hazy); Color,Urine Yellow (Lt Yel-Yel); Glucose, Urine Negative (Negative); Ketones,Urine Negative (Negative); Leukocyte Esterase,Urine Negative (Negative); Nitrite,Urine Negative (Negative); PH,Urine 6.5 (5.0-7.0); Protein,Urine 3+ (Neg - Trace); RBC,Urine 4 /hpf (0-3); Specific Gravity,Urine 1.016 (1.001-1.035); Squamous Epithelial Cell,Urine 3 /hpf (0-5); Urobilinogen,Urine Negative mg/dL (0.0-1.0); WBC,Urine 4 /hpf (0-5)
== END | disposition home or self-care (01) ==
PROVIDERS: PCP Internal Medicine; Referring Provider Internal Medicine; Visit Provider Internal Medicine
DX: N17.8 Other acute kidney failure (principal); I10 Essential (primary) hypertension; K76.89 Other specified diseases of liver
CPT/HCPCS: 36415; 80048; 80076; 81001; 83735; 84100

== ENCOUNTER → 2025-04-23 | Outpatient (CLI) | payer MEDICARE, BC, SELFPAY ==
[2025-04-23 11:45] LABS: Collection Type, Urine Clean Catch
[2025-04-23 12:30] LABS: Bilirubin,Urine Negative (Negative); Blood,Urine 1+ (Negative); Color,Urine Yellow (Lt Yel-Yel); Glucose, Urine Trace (Negative); Hyaline Casts,Urine < 1 /hpf (0-1); Ketones,Urine Negative (Negative); Leukocyte Esterase,Urine Positive (Negative); Nitrite,Urine Negative (Negative); PH,Urine 6.0 (5.0-7.0); Protein,Urine 2+ (Neg - Trace); RBC,Urine 2 /hpf (0-3); Specific Gravity,Urine 1.020 (1.001-1.035); Squamous Epithelial Cell,Urine 10 /hpf (0-5); Urobilinogen,Urine Negative mg/dL (0.0-1.0); WBC,Urine 4 /hpf (0-5)
[2025-04-23 12:45] LABS: Clarity,Urine Hazy (Clear/Hazy)
[2025-04-23 12:46] LABS: Alanine Aminotransferase 18 U/L (10-49); Albumin, Serum 4.5 gm/dL (3.4-4.8); Alkaline Phosphatase 74 U/L (46-116); Anion Gap 13 (7-16); Aspartate Amino Transferase 26 U/L (0-34); BUN/Creatinine Ratio 11 Ratio (12-20); Bilirubin,Direct 0.2 mg/dL (0.0-0.3); Bilirubin,Total 0.4 mg/dL (0.3-1.2); Blood Urea Nitrogen 13 mg/dL (9-23); Calcium 9.4 mg/dL (8.3-10.6); Carbon Dioxide 26.5 mMol/L (20.0-31.0); Chloride 103 mMol/L (98-107); Creatinine (Component) 1.2 mg/dL (0.6-1.3); Glucose 130 mg/dL (74-106); Magnesium 1.6 mg/dL (1.6-2.6); Osmolality,Calculated 285 (275-295); Phosphorous 3.1 mg/dL (2.4-5.1); Sodium 142 mMol/L (136-145); Total Protein 7.8 gm/dL (5.7-8.2); eGFR 45 See Note
[2025-04-23 12:47] LABS: Potassium 2.6 mMol/L (3.4-5.1)
== END | disposition home or self-care (01) ==
LOC: COPL 10:57
PROVIDERS: PCP Internal Medicine; Referring Provider Internal Medicine; Visit Provider Internal Medicine
DX: N17.9 Acute kidney failure, unspecified (principal); I10 Essential (primary) hypertension; K76.89 Other specified diseases of liver
CPT/HCPCS: 36415; 80048; 80076; 81001; 83735; 84100